=== PATIENT | female | born 1950 | race Caucasian/White ===

== ENCOUNTER 2017-09-07 19:26 | Observation (INO) ==
[2017-09-07] MEDS ORDERED: methylPREDNISolone 125 MG/2 ML VIAL IVP ONE (19:33)
[2017-09-07] MEDS ORDERED: Ipratropium/Albuterol Neb 3 ML IH ONE (19:33)
[2017-09-07] MEDS ORDERED: 0.9 % Sodium Chloride 1,000 ML IVC ONE (19:33)
[2017-09-07] MEDS ORDERED: Azithromycin 500 MG in D5% in Water 250 ML IVPB ONE (19:33)
--- NOTE | 2017-09-07 19:35 | Emergency Department Note ---
Disposition Clinical Impression: Acute exacerbation of chronic obstructive airways disease, Failure of outpatient treatment Disposition: Admitted As Inpatient Condition: Fair SOB HPI - General Chief Complaint: ED Shortness of Breath/Dyspnea Stated Complaint: geoff Time Seen by Provider: 09/07/17 19:27 Source: patient, family Mode of arrival: private vehicle Limitations: no limitations Nursing Notes Reviewed: Yes Vital Signs Reviewed: Yes - History of Present Illness Patient reports that she has been having dyspnea over the past week. She is seen about 4 days ago in an urgent care and she was given a shot of antibiotic steroid. She states she is discharged on prescriptions for Levaquin and prednisone. She rates she got a bit better for a day or 2 but has had increased symptoms over the last 24 hours. She laid she has oxygen for use at night only but her saturations and then dropping to 87% during the day. She laid she coughs the point of gagging and has thick phlegm which he usually fairly gets up and swallows. She states her chest is sore with cough but denies other chest pain. She has not been having fevers, chills, diaphoresis or nausea. She denies any lower extremity swelling or pain. She denies any ill exposures. She has been taking her prescribed medicines from the urgent care as well as doing aerosols and inhalers at home. She states she did 2 aerosol treatments today and has used her inhaler 3 times. She relates that her dyspnea is been severe enough that she could only smoke about 4 cigarettes today. Pt Subjective Complaint: shortness of breath, cough Onset (ago): day(s) Context: recent illness Severity: moderate, severe Consistency/Duration: gradually worsening Improves with: oxygen, rest, bronchodilators Worsens with: exertion, coughing Known history of: COPD Associated symptoms: Reports: pain with inspiration, cough, wheezing, sputum production. Denies: chest pain, fever, orthopnea, lower extremity pain, polyuria, polydipsia, parasthesias, palpitations, hemoptysis, diaphoresis, nausea/vomiting, syncope, abdominal pain, rash, sense of impending doom Treatment prior to arrival: oxygen, bronchodilator Cough present: Yes Cough Description: Voluntary, Productive, Moist, Rattling Cough Frequency: Intermittent Sputum production: Yes Sputum Amount: Moderate - Related Data Home oxygen amount: other (As needed at night) Home Medications Medication Instructions Recorded Confirmed Unable To Obtain [Unable to Obtain] 09/07/17 09/07/17 Allergies Allergy/AdvReac Type Severity Reaction Status Date / Time Iodinated Contrast- Oral and AdvReac Hives Verified 09/04/17 19:36 IV Dye [Iodinated Contrast Media - IV Dye] Sulfa (Sulfonamide AdvReac Hives Verified 09/04/17 19:36 Antibiotics) Tetracycline AdvReac Hives Verified 09/04/17 19:36 All systems ED: reviewed and negative except as stated. Past Medical History - Past Medical History Attestation: Yes The following information was validated with the patient. Source: patient, old records reviewed, obtained from family, nursing notes reviewed Medical history: Reports: asthma, COPD, hyperlipidemia, hypertension Surgical history: Reports: hysterectomy, orthopedic, other (Right shoulder, cervical fusion) Psychiatric history: Reports: no psych history - Social History Smoking Status: Current every day smoker Smokeless Tobacco Status: No Alcohol use: Reports: none Drug use: Reports: none Physical Exam - General Limitations: no limitations General appearance: alert, in no apparent distress - Head Head exam: atraumatic, normocephalic, normal inspection - Eye Eye exam: Present: normal appearance, PERRL, EOMI. Absent: scleral icterus, conjunctival injection - ENT ENT exam: normal exam, normal oropharynx, mucous membranes moist - Neck Neck exam: Present: normal inspection, full ROM, trachea midline - Chest Chest inspection: Present: normal inspection, symmetric chest wall rise - Respiratory Respiratory exam: Present: respiratory distress, wheezes, prolonged expiratory phase. Absent: stridor, accessory muscle use - Cardiovascular Cardiovascular exam: Present: regular rate, normal rhythm, tachycardia, normal heart sounds - Abdominal Exam Abdominal exam: Present: soft, Non-Tender, normal bowel sounds. Absent: tenderness, distention, guarding, rebound, rigidity - Extremities Exam Extremities exam: Present: normal inspection, full ROM, normal capillary refill. Absent: tenderness, pedal edema, calf tenderness - Expanded Lower Extremity Exam Neurovascular/Tendon exam: Present: normal capillary refill. Absent: motor deficit, sensory deficit, tendon deficit Gait: observed and normal - Back Exam Back exam: Present: normal inspection, full ROM. Absent: tenderness - Neurological Exam Neurological exam: Present: alert, oriented X3, normal gait. Absent: motor sensory deficit - Psychiatric Psychiatric exam: Present: normal affect, normal mood - Skin Skin exam: Present: warm, dry, intact, normal color. Absent: diaphoresis, pallor Course Course Narrative: With return of lab, EKG and x-ray, the patient is resting improved after aerosols, IV fluids and antibiotics. She has been saturating in the mid 90s with a heart rate down into the 90s. I have discussed care with Dr. Rolon and verbal orders are obtained for her continued inpatient observation. Vital Signs Temperature 97.9 F 09/07/17 19:29 Pulse Rate 118 09/07/17 19:29 Respiratory Rate 22 09/07/17 19:29 Blood Pressure 165/95 09/07/17 19:29 O2 Sat by Pulse Oximetry 84 09/07/17 19:29 Temperature 97.9 F 09/07/17 19:29 Pulse Rate 96 09/07/17 20:19 Respiratory Rate 20 09/07/17 20:19 Blood Pressure 163/80 09/07/17 20:19 O2 Sat by Pulse Oximetry 93 09/07/17 20:19 Oxygen Delivery Oxygen Delivery Nasal Cannula Shortness of Breath/Dyspnea - Differential Diagnosis Likely: acute exacerbation of chronic obstructive airways disease, pneumonia, asthma with exacerbation - Medical Records Medical records reviewed: Yes I reviewed the patient's medical records. CT/CT thorax wo con screen IMPRESSION: Negative for lung cancer. Extensive coronary artery calcification. Stable 1.1 cm calcified splenic artery aneurysm. D/ / Karson Cunha MD / Karson Cunha MD - Lab Data Lab results reviewed: Yes I reviewed the patient's lab results. Result diagrams: 09/07/17 19:58 09/07/17 19:58 Lab Results 09/07/17 09/07/17 09/07/17 Range/Units 19:58 19:58 19:58 WBC 11.8 H (4.3-11.1) K/mcL RBC 5.06 H (3.82-4.97) M/mcL Hgb 15.5 H (11.5-15.4) g/dL Hct 47.9 H (35.3-44.9) % MCV 94.7 (83.0-100.0) fL MCH 30.6 (28.0-33.3) pg MCHC 32.4 (31.6-35.5) g/dL RDW 12.8 (11.5-14.5) % Plt Count 262 (140-400) K/mcL MPV 9.3 L (9.4-12.4) fL Immature Gran % 0.3 (0-4) % Seg Neutrophils % 48.7 % Lymphocytes % 39.3 % Monocytes % 9.0 % Eosinophils % 2.1 % Basophils % 0.6 % Neutrophils # 5.8 (1.6-8.9) K/mcL Lymphocytes # 4.6 (0.6-4.6) K/mcL Monocytes # 1.1 (0.0-1.3) K/mcL Eosinophils # 0.3 (0.0-0.6) K/mcL Basophils # 0.1 (0.0-0.2) K/mcL Sodium 140 (136-145) mEq/L Potassium 3.9 (3.5-4.5) mEq/L Chloride 101 (98-109) mEq/L Carbon Dioxide 26 (19-29) mEq/L BUN 22 H (7-20) mg/dL Creatinine 0.83 (0.57-1.11) mg/dL Est GFR ( Amer) > 60 (> 60) Est GFR (Non-Af Amer) > 60 (> 60) BUN/Creatinine Ratio 27 H (6-26) Glucose 97 (70-99) mg/dL Calculated Osmolality 293 (280-300) Lactic Acid 1.0 (0.5-2.2) mmol/L Calcium 9.6 (8.6-10.8) mg/dL Troponin I (0-0.03) ng/mL B-Natriuretic Peptide (0-100) pg/mL 09/07/17 09/07/17 Range/Units 19:58 19:58 WBC (4.3-11.1) K/mcL RBC (3.82-4.97) M/mcL Hgb (11.5-15.4) g/dL Hct (35.3-44.9) % MCV (83.0-100.0) fL MCH (28.0-33.3) pg MCHC (31.6-35.5) g/dL RDW (11.5-14.5) % Plt Count (140-400) K/mcL MPV (9.4-12.4) fL Immature Gran % (0-4) % Seg Neutrophils % % Lymphocytes % % Monocytes % % Eosinophils % % Basophils % % Neutrophils # (1.6-8.9) K/mcL Lymphocytes # (0.6-4.6) K/mcL Monocytes # (0.0-1.3) K/mcL Eosinophils # (0.0-0.6) K/mcL Basophils # (0.0-0.2) K/mcL Sodium (136-145) mEq/L Potassium (3.5-4.5) mEq/L Chloride (98-109) mEq/L Carbon Dioxide (19-29) mEq/L BUN (7-20) mg/dL Creatinine (0.57-1.11) mg/dL Est GFR ( Amer) (> 60) Est GFR (Non-Af Amer) (> 60) BUN/Creatinine Ratio (6-26) Glucose (70-99) mg/dL Calculated Osmolality (280-300) Lactic Acid (0.5-2.2) mmol/L Calcium (8.6-10.8) mg/dL Troponin I 0.00 (0-0.03) ng/mL B-Natriuretic Peptide 30 (0-100) pg/mL - Radiology Data Radiology results reviewed: Yes I reviewed the patient's radiology results. Single view chest x-ray is performed. This does not demonstrate evidence for infiltrate, effusion, pneumothorax, foreign body or heart failure. Patient does demonstrate some hyperinflation consistent with her COPD. The cardiac silhouette is normal. I do not see abnormality to the osseous structures of the chest. This is on my interpretation. Impressions Chest X-Ray 09/07/17 19:34 IMPRESSION: No acute disease. D/ / Abel Gillespie MD / Abel Gillespie MD Interpreting Provider: Abel Gillespie MD - EKG Data EKG attestation: Yes I reviewed and interpreted this EKG. EKG shows normal: Reports: sinus rhythm, intervals, QRS complexes, ST-T waves Rate: Reports: tachycardia (103) P waves: Reports: LAE, PREM Interpretation: Reports: no acute changes (Consistent with chronic pulmonary disease.)
[2017-09-07 20:15] LABS: Basophils # 0.1 K/mcL (0.0-0.2); Basophils % 0.6 %; Eosinophils # 0.3 K/mcL (0.0-0.6); Eosinophils % 2.1 %; Hematocrit 47.9 % (35.3-44.9); Hemoglobin 15.5 g/dL (11.5-15.4); Immature Granulocytes % 0.3 % (0-4); Lymphocytes # 4.6 K/mcL (0.6-4.6); Lymphocytes % 39.3 %; Mean Corpuscular HGB Conc 32.4 g/dL (31.6-35.5); Mean Corpuscular Hemoglobin 30.6 pg (28.0-33.3); Mean Corpuscular Volume 94.7 fL (83.0-100.0); Mean Platelet Volume 9.3 fL (9.4-12.4); Monocytes # 1.1 K/mcL (0.0-1.3); Platelet Count 262 K/mcL (140-400); Red Blood Count 5.06 M/mcL (3.82-4.97); Red Cell Distribution Width 12.8 % (11.5-14.5); Segmented Neutrophils % 48.7 %
[2017-09-07 20:19] LABS: Neutrophils # 5.8 K/mcL (1.6-8.9)
[2017-09-07 20:50] LABS: BUN/Creatinine Ratio 27 (6-26); Blood Urea Nitrogen 22 mg/dL (7-20); Calcium 9.6 mg/dL (8.6-10.8); Carbon Dioxide 26 mEq/L (19-29); Chloride 101 mEq/L (98-109); Glucose 97 mg/dL (70-99); Osmolality,Calculated 293 (280-300); Potassium 3.9 mEq/L (3.5-4.5); Sodium 140 mEq/L (136-145); eGFR For African Americans > 60 (> 60); eGFR For Non-African Americans > 60 (> 60)
[2017-09-07] MEDS ORDERED: MOM Conc 10 ML UD.LIQ PO PRN (21:13)
[2017-09-07] MEDS ORDERED: Ondansetron 4 MG/2 ML VIAL IVP PRN (21:13)
[2017-09-07] MEDS ORDERED: Acetaminophen 325 MG TABLET PO PRN (21:13)
[2017-09-07] MEDS ORDERED: Naloxone 0.4 MG/ML INJ IVP PRN (21:13)
[2017-09-07] MEDS: Ipratropium/Albuterol Neb 3 ML IH SCH (22:39)
[2017-09-08] MEDS: 0.9 % Sodium Chloride 1,000 ML IVC SCH ×2 (00:45→07:44)
[2017-09-08] MEDS: Ipratropium/Albuterol Neb 3 ML IH SCH ×2 (04:37→10:13)
[2017-09-08] MEDS: Nicotine 21 MG PATCH.TD24 TD SCH (07:48)
[2017-09-08] MEDS ORDERED: predniSONE 20 MG TABLET PO SCH (08:00)
--- NOTE | 2017-09-08 11:56 | Internal Med History&Physical ---
Date of Encounter: 09/08/17 Time of Encounter: 11:25 Assessment and Plan (1) Acute exacerbation of chronic obstructive airways disease Current visit: Yes Status: Acute She has been started on Rocephin and Zithromax. I will add lactobacillus. We will recheck labs in a.m. Anticipate discharge home tomorrow if stable. Internal Medicine - H&P: HPI Chief complaint: Cough and dyspnea Admitted From: Home Plans for Post Hospital Care: Home History of present illness: Ms. Andrews is a 67 year old female who came to the emergency room stating she had ongoing dyspnea present for approximately 10 days. She reports she had seen her PCP Dr. Beaulieu approximately 2 weeks earlier. An MRI of the head was ordered which showed possible sinus infection. She was given 10 day course of Levaquin with prednisone. On September 04 she went to a local urgent care for dyspnea. She received additional Levaquin and prednisone prescriptions and also received a Rocephin (?) Injection. On the day of admission she felt progressive dyspnea and had cough productive of occasional yellow sputum. She came to emergency room and was admitted to [facility] for ongoing care needs. Her respiratory history significant for having smoked since age 28 up to 4 packs per day. She wears oxygen at bedtime and when necessary during the daytime. She has diagnoses of COPD. She had a sleep study several years ago and was told she had JOCELYN but did not routinely wear prescribed CPAP. She reports a repeat sleep study has shown no evidence of JOCELYN. She had a chest CT for lung cancer screening 06/03/2017 which showed no evidence of malignancy. Past Med Surg Social Fam HX - Past Medical History Medical history: asthma, COPD, hyperlipidemia, hypertension Psychiatric history: no psych history - Past Surgical History Surgical History: hysterectomy, orthopedic, other - Social History Smoking Status: Current every day smoker Smokeless Tobacco Status: No Alcohol use: none Drug use: none - Family History Mother Hx Family Cancer: Yes Father Hx Family Respiratory Disorders: Yes (COPD) Internal Medicine - H&P: Meds Albuterol Sulfate [Ventolin Hfa] 18 gm IH Q4-6HWA PRN 09/08/17 [History] Budesonide/Formoterol 160/4.5 [Symbicort 160/4.5] 2 puff IH BIDR 09/08/17 [ History] Buspirone HCl [Buspar] 15 mg PO BID 09/08/17 [History] Cetirizine HCl [All Day Allergy] 10 mg PO QDPC 09/08/17 [History] Diclofenac Sodium [Voltaren] 50 mg PO BID PRN 09/08/17 [History] Ergocalciferol (VITAMIN D2) [Vitamin D2] 50,000 unit PO QWEEK 09/08/17 [History] Ezetimibe [Zetia] 10 mg PO QDPC 09/08/17 [History] Furosemide [Lasix] 20 mg PO DAILY 09/08/17 [History] Gabapentin [Neurontin] 300 mg PO TID 09/08/17 [History] HydrOXYzine Pamoate [Vistaril] 50 mg PO BID PRN 09/08/17 [History] Montelukast [Singulair] 10 mg PO HS 09/08/17 [History] Omeprazole [PriLOSEC] 40 mg PO DAILY 09/08/17 [History] Quetiapine Fumarate [SEROquel] 100 mg PO HS 09/08/17 [History] Rosuvastatin [Crestor] 40 mg PO QPM 09/08/17 [History] Tizanidine HCl [Zanaflex] 2 mg PO QPM 09/08/17 [History] Topiramate [Topamax] 25 mg PO QDPC 09/08/17 [History] Verapamil HCl [Verapamil ER] 240 mg PO BID 09/08/17 [History] 3 Allergy/AdvReac Type Severity Reaction Status Date / Time Iodinated Contrast- Oral and AdvReac Hives Verified 09/04/17 19:36 IV Dye [Iodinated Contrast Media - IV Dye] Sulfa (Sulfonamide AdvReac Hives Verified 09/04/17 19:36 Antibiotics) Tetracycline AdvReac Hives Verified 09/04/17 19:36 All Systems PM: A 10-system review of systems was performed and is negative for pertinent findings except as documented above in the HPI. Review of systems: Gen.: Her weight has been stable at approximately 140 pounds for several years Cardiovascular: She has a history of hypertension but no known [place] heart failure angina DVT or pulmonary embolus. She reports a negative exercise stress test approximately 2010 Respiratory: As per history of present illness GI: She denies disorders of her liver gallbladder or exocrine pancreas : No history of hematuria dysuria or kidney stones Neurologic: No history of strokes or seizures Endocrine: She has hyperlipidemia but no known diabetes or thyroid disease Hematology/oncology: No history of blood disorders cancers or anemia Psychiatric: She has anxiety but no significant depression or other mental health issues [place] skeletal: She has arthritis but no known gout osteoporosis or other bone joint or muscle disorders. - Constitutional Vitals: Temp Pulse Resp BP Pulse Ox 98.7 F 109 18 108/52 91 09/08/17 11:25 09/08/17 11:25 09/08/17 11:25 09/08/17 11:25 09/08/17 11:25 Exam: Gen.: She is a well-developed well-nourished female sitting in bed who appears in mild respiratory distress HEENT: Head is atraumatic and normocephalic. Eyes: EOMI. There is no scleral icterus. Mouth: Mucosa is moist. Neck: Supple and nontender. There is no thyromegaly or adenopathy noted. Heart: Regular without murmurs gallops or ectopics Lungs: She has a few scattered rhonchi. No inspiratory crackles or expiratory wheezing is heard. Breath sounds are symmetric. Abdomen: Soft and nontender. No masses or guarding are noted. Extremities: There is no cyanosis edema or clubbing noted. Dorsalis pedis and posttibial pulses are 1-2 over 2 bilaterally. Neurologic: Mental status: She is talkative and a good historian. Cranial nerves: Smile is symmetric. Forehead wrinkles bilaterally. Tongue protrudes midline. EOMI. Motor: There is no pronator drift. Cerebellar: Fair to nose is intact bilaterally. Skin: Warm and dry Internal Med - H&P Results - Labs CBC & Chem 7: 09/07/17 19:58 09/07/17 19:58
[2017-09-08] MEDS: predniSONE 20 MG TABLET PO SCH ×2 (12:52→17:14)
[2017-09-08] MEDS ORDERED: Cholecalciferol (D-3) 1,000 UNIT TABLET PO SCH ×2 (13:00→14:45)
[2017-09-08] MEDS: Budesonide/Formoterol 160/4.5 MDI IH SCH ×2 (14:17→21:49)
[2017-09-08] MEDS: Tiotropium 18 MCG inhalation IH SCH (14:17)
[2017-09-08] MEDS: Cholecalciferol (D-3) 1,000 UNIT TABLET PO SCH (14:43)
[2017-09-08] MEDS: Gabapentin 300 MG CAPSULE PO SCH ×2 (14:43→22:05)
[2017-09-08] MEDS: Albuterol 2.5 MG/3 ML NEBULIZER IH PRN ×2 (16:35→21:49)
[2017-09-08] MEDS ORDERED: tiZANidine 4 MG TABLET PO SCH ×2 (18:00→21:00)
[2017-09-08] MEDS ORDERED: Azithromycin 500 MG in D5% in Water 250 ML IVPB SCH (21:00)
[2017-09-08] MEDS: Verapamil ER (24 HR) 240 MG TABLET.ER PO SCH (22:04)
[2017-09-09 06:37] VITALS: BP 132/72
--- NOTE | 2017-09-09 06:39 | Electrocardiograph Report ---
[address] [address] Test Date: 2017-09-07 Pat Name: Cecilia Andrews Department: 9201 Room: [facility] Gender: F General Ophthalmologist: [id number] : 1950 Requested By: Shan Singh Order Number: [id number] Reading MD: Efren Edwards MD Measurements Intervals [place] Rate: 103 P: 80 GA: 164 QRS: 217 QRSD: 94 T: 66 QT: 328 QTc: 388 Interpretive Statements SINUS TACHYCARDIA RIGHT ATRIAL ENLARGEMENT LEFT ATRIAL ENLARGEMENT Poor R wave progression INDETERMINATE AXIS Electronically Signed On 09-09-2017 6:37:47 EDT by Efren Edwards MD
[2017-09-09 07:53] LABS: Basophils % 0.1 %; Eosinophils # 0.1 K/mcL (0.0-0.6); Hemoglobin 12.6 g/dL (11.5-15.4); Immature Granulocytes % 0.5 % (0-4); Lymphocytes # 2.5 K/mcL (0.6-4.6); Mean Corpuscular HGB Conc 33.2 g/dL (31.6-35.5); Mean Corpuscular Hemoglobin 30.1 pg (28.0-33.3); Mean Corpuscular Volume 90.7 fL (83.0-100.0); Mean Platelet Volume 9.2 fL (9.4-12.4); Monocytes # 0.8 K/mcL (0.0-1.3); Monocytes % 9.2 %; Neutrophils # 4.9 K/mcL (1.6-8.9); Platelet Count 237 K/mcL (140-400); Red Blood Count 4.19 M/mcL (3.82-4.97); Red Cell Distribution Width 12.9 % (11.5-14.5); Segmented Neutrophils % 59.2 %
[2017-09-09] MEDS: predniSONE 20 MG TABLET PO SCH (08:39)
[2017-09-09] MEDS: Nicotine 21 MG PATCH.TD24 TD SCH (08:39)
[2017-09-09] MEDS: Gabapentin 300 MG CAPSULE PO SCH (08:40)
[2017-09-09] MEDS: Cholecalciferol (D-3) 1,000 UNIT TABLET PO SCH (08:40)
[2017-09-09] MEDS: Verapamil ER (24 HR) 240 MG TABLET.ER PO SCH (08:40)
[2017-09-09] MEDS ORDERED: NON-FORMULARY MEDICATION 1 EACH EACH (Ezetimibe [Zetia] 10 MG) PO SCH (09:00)
[2017-09-09] MEDS ORDERED: Topiramate 25 MG TABLET PO SCH (09:00)
[2017-09-09] MEDS ORDERED: Loratadine 10 MG TABLET PO SCH (09:00)
--- NOTE | 2017-09-09 09:48 | Discharge Summary ---
Date of Encounter: 09/09/17 Time of Encounter: 09:35 - Discharge Diagnosis (1) Acute exacerbation of chronic obstructive airways disease Priority: Primary Status: Acute - Discharge Medications Prescriptions: Cefuroxime PO [Ceftin] 500 mg PO Q12HR #6 tablet Azithromycin [Zithromax] 250 mg PO DAILY #3 tablet Lactobacillus [Culturelle] 1 each PO BID #6 cap.sprink Nicotine Patch [Nicoderm] 21 mg TD DAILY #7 patch.td24 predniSONE [PredniSONE] 10 mg PO BIDWM #6 tablet Home Medications: Albuterol Sulfate [Ventolin Hfa] 18 gm IH Q4-6HWA PRN 09/08/17 [History] Budesonide/Formoterol 160/4.5 [Symbicort 160/4.5] 2 puff IH BIDR 09/08/17 [ History] Buspirone HCl [Buspar] 15 mg PO BID 09/08/17 [History] Cetirizine HCl [All Day Allergy] 10 mg PO QDPC 09/08/17 [History] Diclofenac Sodium [Voltaren] 50 mg PO BID PRN 09/08/17 [History] Ergocalciferol (VITAMIN D2) [Vitamin D2] 50,000 unit PO QWEEK 09/08/17 [History] Ezetimibe [Zetia] 10 mg PO QDPC 09/08/17 [History] Furosemide [Lasix] 20 mg PO DAILY 09/08/17 [History] Gabapentin [Neurontin] 300 mg PO TID 09/08/17 [History] HydrOXYzine Pamoate [Vistaril] 50 mg PO BID PRN 09/08/17 [History] Montelukast [Singulair] 10 mg PO HS 09/08/17 [History] Omeprazole [PriLOSEC] 40 mg PO DAILY 09/08/17 [History] Quetiapine Fumarate [Seroquel] 100 mg PO HS 09/08/17 [History] Rosuvastatin [Crestor] 40 mg PO QPM 09/08/17 [History] Tizanidine HCl [Zanaflex] 2 mg PO QPM 09/08/17 [History] Topiramate [Topamax] 25 mg PO QDPC 09/08/17 [History] Verapamil HCl [Verapamil ER] 240 mg PO BID 09/08/17 [History] Azithromycin [Zithromax] 250 mg PO DAILY #3 tablet 09/09/17 [Rx] Cefuroxime PO [Ceftin] 500 mg PO Q12HR #6 tablet 09/09/17 [Rx] Lactobacillus [Culturelle] 1 each PO BID #6 cap.sprink 09/09/17 [Rx] Nicotine Patch [Nicoderm] 21 mg TD DAILY #7 patch.td24 09/09/17 [Rx] predniSONE [PredniSONE] 10 mg PO BIDWM #6 tablet 09/09/17 [Rx] Allergies/Adverse Reactions: 3 Allergy/AdvReac Type Severity Reaction Status Date / Time Iodinated Contrast- Oral and AdvReac Hives Verified 09/04/17 19:36 IV Dye [Iodinated Contrast Media - IV Dye] Sulfa (Sulfonamide AdvReac Hives Verified 09/04/17 19:36 Antibiotics) Tetracycline AdvReac Hives Verified 09/04/17 19:36 Date of admission: 09/07/17 20:48 Primary care physician: Luis Eduardo Beaulieu MD - Patient Status Disposition: Home, Self-Care Condition: Fair Functional capacity at discharge: independent ambulation Overall status at discharge: patient is progressing back to baseline - Discharge Instructions Follow Up With: Luis Eduardo Beaulieu MD [Primary Care Provider] - 1 week - Diet and Activity Activity: resume usual activities as tolerated, wear oxygen at night Diet: advance to your usual diet Hospital course: Ms. Andrews is a 67 year old female who came to the emergency room stating she had ongoing dyspnea present for approximately 10 days. She reports she had seen her PCP Dr. Beaulieu approximately 2 weeks earlier. An MRI of the head was ordered which showed possible sinus infection. She was given 10 day course of Levaquin with prednisone. On September 04 she went to a local urgent care for dyspnea. She received additional Levaquin and prednisone prescriptions and also received a Rocephin (?) Injection. On the day of admission she felt progressive dyspnea and had cough productive of occasional yellow sputum. She came to emergency room and was admitted to [facility] for ongoing care needs. Initial orders were written by the emergency room physician. I saw her on September 08 and performed a history and physical. She was started on Rocephin and Zithromax through the emergency room. I added lactobacillus. Her WBC normalized by the following day. She felt significantly improved when I saw her on September 09 and was stable for discharge home. She will follow with her PCP within one week. I strongly encouraged her to become a nonsmoker. She will continue with antibiotics and probiotics for 3 additional days at discharge. - Time Spent with Patient Total time spent providing and/or coordinating discharge services: - Constitutional Vitals: Temp Pulse Resp BP Pulse Ox 98.0 F 90 16 132/72 93 09/09/17 06:34 09/09/17 06:34 09/09/17 06:34 09/09/17 06:34 09/09/17 06:34
[2017-09-09] MEDS: Tiotropium 18 MCG inhalation IH SCH (10:11)
[2017-09-09] MEDS: Budesonide/Formoterol 160/4.5 MDI IH SCH (10:11)
== END 2017-09-09 11:00 | disposition home or self-care (01) ==
LOC: EMEROOPIK 19:26 → INPPIK 19:26
PROVIDERS: ADMIT Internal Medicine; ATTEND Internal Medicine

== ENCOUNTER 2022-08-19 17:53 | Observation (INO) ==
[2022-08-19 19:15] LABS: Basophils # 0.1 K/mcL (0.0-0.2); Basophils % 0.6 %; Eosinophils # 0.6 K/mcL (0.0-0.6); Eosinophils % 5.8 %; Hematocrit 42.9 % (35.3-44.9); Hemoglobin 13.8 g/dL (11.5-15.4); Immature Granulocytes % 0.2 % (0-4); Lymphocytes # 2.9 K/mcL (0.6-4.6); Lymphocytes % 26.6 %; Mean Corpuscular HGB Conc 32.2 g/dL (31.6-35.5); Mean Corpuscular Hemoglobin 30.9 pg (28.0-33.3); Mean Platelet Volume 9.2 fL (9.4-12.4); Monocytes # 0.6 K/mcL (0.0-1.3); Monocytes % 5.3 %; Neutrophils # 6.8 K/mcL (1.6-8.9); Platelet Count 364 K/mcL (140-400); Red Blood Count 4.47 M/mcL (3.82-4.97); Red Cell Distribution Width 14.1 % (11.5-14.5); Segmented Neutrophils % 61.5 %
[2022-08-19 19:24] LABS: INR 1.1; Prothrombin Time 12.1 Seconds (9.4-12.1)
[2022-08-19 19:26] LABS: Activated Partial Thrombo Time 28.8 Seconds (26.0-36.0)
[2022-08-19 19:31] LABS: Albumin 3.8 g/dL (3.5-5.7); Albumin/Globulin Ratio 1.2 (1.1-2.2); Bilirubin,Total 0.5 mg/dL (0.3-1.0); Calcium 8.9 mg/dL (8.6-10.3); Globulin 3.1 g/dL (2.4-3.5); Potassium 3.1 mEq/L (3.5-5.1); Total Protein 6.9 g/dL (6.4-8.9)
[2022-08-19 19:32] LABS: Magnesium 1.7 mg/dL (1.6-2.6); Phosphorous 4.6 mg/dL (2.7-4.5)
[2022-08-19 19:34] LABS: Troponin I < 0.03 ng/mL (< 0.04)
[2022-08-19] MEDS ORDERED: Ipratropium/Albuterol Neb 3 ML IH ONE (21:23)
[2022-08-19] MEDS ORDERED: methylPREDNISolone 125 MG/2 ML VIAL IVP ONE (21:23)
[2022-08-19] MEDS ORDERED: Azithromycin 500 MG in 0.9 % Sodium Chloride 250 ML IVPB ONE (22:00)
[2022-08-19] MEDS ORDERED: Ondansetron 4 MG/2 ML VIAL IVP PRN (22:50)
[2022-08-19] MEDS ORDERED: Melatonin 3 MG TABLET PO PRN (22:50)
[2022-08-19] MEDS ORDERED: Naloxone 0.4 MG/ML INJ IVP PRN (22:50)
[2022-08-19] MEDS ORDERED: Acetaminophen 325 MG TABLET PO PRN (22:50)
[2022-08-20] MEDS: MethylPREDNISolone 40 MG/ML VIAL IVP SCH ×6 (00:03→17:46)
[2022-08-20] MEDS: Ipratropium/Albuterol Neb 3 ML IH SCH ×7 (00:33→23:11)
[2022-08-20] MEDS: Budesonide/Formoterol 160/4.5 1 PUFF INH IH SCH ×2 (07:51→20:18)
[2022-08-20 08:59] LABS: Hematocrit 41.9 % (35.3-44.9); Hemoglobin 13.4 g/dL (11.5-15.4); Immature Granulocytes % 0.5 % (0-4); Lymphocytes # 0.7 K/mcL (0.6-4.6); Lymphocytes % 12.2 %; Mean Corpuscular Hemoglobin 30.9 pg (28.0-33.3); Mean Corpuscular Volume 96.5 fL (83.0-100.0); Mean Platelet Volume 9.6 fL (9.4-12.4); Monocytes # 0.1 K/mcL (0.0-1.3); Monocytes % 2.2 %; Platelet Count 330 K/mcL (140-400); Red Blood Count 4.34 M/mcL (3.82-4.97); Red Cell Distribution Width 14.2 % (11.5-14.5); Segmented Neutrophils % 85.1 %; White Blood Count 5.9 K/mcL (4.3-11.1)
[2022-08-20 09:00] LABS: Prothrombin Time 11.5 Seconds (9.4-12.1)
[2022-08-20 09:03] LABS: Activated Partial Thrombo Time 27.8 Seconds (26.0-36.0)
[2022-08-20 09:11] LABS: Calcium 8.4 mg/dL (8.6-10.3); Magnesium 1.9 mg/dL (1.6-2.6); Potassium 3.3 mEq/L (3.5-5.1)
[2022-08-20] MEDS: Chlorhexidine Rinse 15 ML MOUTHWASH MM SCH ×2 (09:58→20:59)
[2022-08-20] MEDS: Aspirin Enteric Coated 81 MG Tablet PO SCH (09:59)
[2022-08-20] MEDS: Apixaban 5 MG TABLET PO SCH ×2 (09:59→20:58)
[2022-08-20] MEDS: Isosorbide MONOnitrate (24 HR) 30 MG TAB.ER.24H PO SCH (09:59)
[2022-08-20 11:01] LABS: Adenovirus Not Detected (Not Detect); Coronavirus 229E Not Detected (Not Detect); Coronavirus HKU1 Not Detected (Not Detect); Coronavirus NL63 Not Detected (Not Detect); Coronavirus OC43 Not Detected (Not Detect); Human Metapneumovirus Not Detected (Not Detect); SARS-CoV-2 Not Detected (Not Detect)
[2022-08-20 11:02] LABS: Bordetella Pertussis Not Detected (Not Detect); Chlamydophila pneumoniae Not Detected (Not Detect); Human Rhinovirus/Enterovirus Not Detected (Not Detect); Influenza A Subtype 2009 H1 Not Detected (Not Detect); Influenza B Not Detected (Not Detect); Mycoplasma pneumoniae Not Detected (Not Detect); Parainfluenza Virus 1 Not Detected (Not Detect); Parainfluenza Virus 2 Not Detected (Not Detect); Parainfluenza Virus 3 Not Detected (Not Detect); Parainfluenza Virus 4 Not Detected (Not Detect); Respiratory Syncytial Virus Not Detected (Not Detect)
[2022-08-20] MEDS ORDERED: SUMAtriptan succinate 50 MG TABLET PO PRN (13:45)
[2022-08-20] MEDS ORDERED: *HR* OxyCODONE/APAP 5/325 TABLET PO PRN (13:53)
[2022-08-20] MEDS ORDERED: Baclofen 10 MG TABLET PO PRN (13:53)
[2022-08-20] MEDS ORDERED: D5% in 0.45% NACL 1,000 ML IVC SCH (14:00)
[2022-08-20] MEDS: Nicotine 14 MG PATCH.TD24 TD SCH (14:12)
[2022-08-20] MEDS: QUEtiapine Fumarate 100 MG TABLET PO SCH (20:57)
[2022-08-20] MEDS: Gabapentin 300 MG CAPSULE PO SCH (20:57)
[2022-08-21] MEDS: MethylPREDNISolone 40 MG/ML VIAL IVP SCH ×3 (00:40→21:46)
[2022-08-21] MEDS: Ipratropium/Albuterol Neb 3 ML IH SCH ×5 (04:08→20:12)
[2022-08-21 07:56] LABS: Hematocrit 38.3 % (35.3-44.9); Immature Granulocytes % 0.8 % (0-4); Lymphocytes # 0.8 K/mcL (0.6-4.6); Mean Corpuscular HGB Conc 31.3 g/dL (31.6-35.5); Mean Corpuscular Hemoglobin 30.5 pg (28.0-33.3); Mean Corpuscular Volume 97.2 fL (83.0-100.0); Mean Platelet Volume 9.7 fL (9.4-12.4); Monocytes # 0.2 K/mcL (0.0-1.3); Monocytes % 2.1 %; Neutrophils # 10.5 K/mcL (1.6-8.9); Platelet Count 303 K/mcL (140-400); Red Blood Count 3.94 M/mcL (3.82-4.97); Red Cell Distribution Width 14.3 % (11.5-14.5); Segmented Neutrophils % 90.1 %; White Blood Count 11.6 K/mcL (4.3-11.1)
[2022-08-21] MEDS: Nicotine 14 MG PATCH.TD24 TD SCH (08:48)
[2022-08-21] MEDS: Chlorhexidine Rinse 15 ML MOUTHWASH MM SCH ×2 (08:48→21:46)
[2022-08-21] MEDS: Gabapentin 300 MG CAPSULE PO SCH ×2 (08:49→21:45)
[2022-08-21] MEDS: Multivit/Ca/Min/Fe/FA 1 TAB TABLET PO SCH (08:49)
[2022-08-21] MEDS: Aspirin Enteric Coated 81 MG Tablet PO SCH (08:49)
[2022-08-21] MEDS: Isosorbide MONOnitrate (24 HR) 30 MG TAB.ER.24H PO SCH (08:49)
[2022-08-21] MEDS: Apixaban 5 MG TABLET PO SCH ×2 (08:49→21:45)
[2022-08-21] MEDS ORDERED: NON-FORMULARY MEDICATION 1 EACH EACH (Fluticasone/Umeclidin/Vilanter [Trelegy Ellipta 200- IH SCH (09:00)
[2022-08-21] MEDS: Budesonide/Formoterol 160/4.5 1 PUFF INH IH SCH ×2 (09:25→20:12)
[2022-08-21 10:12] LABS: Potassium 4.2 mEq/L (3.5-5.1)
[2022-08-21] MEDS: QUEtiapine Fumarate 100 MG TABLET PO SCH (21:45)
[2022-08-22] MEDS: Ipratropium/Albuterol Neb 3 ML IH SCH ×5 (00:28→15:33)
[2022-08-22 05:03] LABS: Basophils % 0.2 %; Hematocrit 36.5 % (35.3-44.9); Hemoglobin 11.7 g/dL (11.5-15.4); Immature Granulocytes % 0.8 % (0-4); Lymphocytes # 0.7 K/mcL (0.6-4.6); Lymphocytes % 6.9 %; Mean Corpuscular HGB Conc 32.1 g/dL (31.6-35.5); Mean Corpuscular Hemoglobin 31.4 pg (28.0-33.3); Mean Corpuscular Volume 97.9 fL (83.0-100.0); Mean Platelet Volume 9.8 fL (9.4-12.4); Monocytes # 0.3 K/mcL (0.0-1.3); Monocytes % 2.5 %; Neutrophils # 9.4 K/mcL (1.6-8.9); Platelet Count 285 K/mcL (140-400); Red Blood Count 3.73 M/mcL (3.82-4.97); Red Cell Distribution Width 14.6 % (11.5-14.5); Segmented Neutrophils % 89.6 %; White Blood Count 10.5 K/mcL (4.3-11.1)
[2022-08-22 05:24] LABS: Calcium 8.1 mg/dL (8.6-10.3); Potassium 4.8 mEq/L (3.5-5.1)
[2022-08-22] MEDS: MethylPREDNISolone 40 MG/ML VIAL IVP SCH (06:57)
[2022-08-22] MEDS: Chlorhexidine Rinse 15 ML MOUTHWASH MM SCH (08:17)
[2022-08-22] MEDS: Nicotine 14 MG PATCH.TD24 TD SCH (08:17)
[2022-08-22] MEDS: Gabapentin 300 MG CAPSULE PO SCH (08:18)
[2022-08-22] MEDS: Isosorbide MONOnitrate (24 HR) 30 MG TAB.ER.24H PO SCH (08:18)
[2022-08-22] MEDS: Aspirin Enteric Coated 81 MG Tablet PO SCH (08:18)
[2022-08-22] MEDS: Apixaban 5 MG TABLET PO SCH (08:18)
[2022-08-22] MEDS: Multivit/Ca/Min/Fe/FA 1 TAB TABLET PO SCH (08:18)
[2022-08-22] MEDS: Budesonide/Formoterol 160/4.5 1 PUFF INH IH SCH (08:55)
[2022-08-22 14:58] VITALS: BP 110/63; PULSE 96; TEMP 97.8; O2SAT 93
[2022-08-22 15:34] VITALS: RESP 16
[2022-08-22] MEDS ORDERED: Flu Vac QV 22-23 (6MOS UP)/PF 0.5 ML SYRINGE IM ONE (17:26)
== END 2022-08-22 17:55 | disposition home health service (06) ==
LOC: EMEROOPIK 17:53 → INPPIK 17:53 → SUATTDRO 22:58 → INPPIK 23:08
PROVIDERS: ADMIT Internal Medicine; ATTEND Internal Medicine